=== PATIENT | male | born 1935 | race Caucasian/White ===

== ENCOUNTER 2018-09-08 11:14 | Inpatient (IN) | payer OTHER ==
[~2018-09-08] VITALS: Ht 177.8 cm; Wt 81.6 kg
[~2018-09-08 11:14] MED LIST: ACETAMINOPHEN325 M1 PO; ALEVE220 M1 PO; ASPIRIN325 PO; CALCIUM 600 +1 EA11 PO; COUMADIN 2 MG TA2 M1; COUMADIN 5 MG TA5 M1; FERREX 150150 MG PO; HYDROCODON-ACE1 EAC5; LIPITOR80 MG PO; LOPID600 MG PO; METOPROLOL SUCC25 M1 PO; MULTIVITAMINS PO; NORVASC10 MG PO
[2018-09-08 11:19] VITALS: BP 117/63
[2018-09-08] MEDS ORDERED: FISH OIL 1,001000 M2 PO (11:25)
[2018-09-08 11:51] LABS: URINE BILIRUBIN NEGATIVE (Negative); URINE BLOOD NEGATIVE (Negative); URINE CLARITY CLEAR; URINE COLOR YELLOW; URINE GLUCOSE-RANDOM* NEGATIVE (Negative); URINE KETONES NEGATIVE (Negative); URINE LEUKOCYTES-REFLEX NEGATIVE (Negative); URINE NITRITE-REFLEX NEGATIVE (Negative); URINE PROTEIN (DIPSTICK) NEGATIVE (Negative); URINE SPECIFIC GRAVITY <= 1.005 (1.005-1.035); URINE UROBILINOGEN 0.2 E.U./dl (0.2-1.0)
[2018-09-08 13:10] LABS: HEMATOCRIT 34.2 % (42.0-52.0); HEMOGLOBIN 11.3 gm/dL (14.0-18.0); MCH 30.5 pg (26.0-34.0); MCV 92.3 fL (80.0-100.0); PLATELET COUNT 293 thou/uL (150-400); RDW 13.7 % (10.5-14.5); WBC 6.8 thou/uL (4.0-11.0)
[2018-09-08 13:17] LABS: CALCIUM 9.3 mg/dL (8.5-10.1); CREATININE 1.5 mg/dL (0.7-1.3); POTASSIUM 4.7 mmol/L (3.5-5.1)
[2018-09-08 13:23] LABS: ALBUMIN 2.6 g/dL (3.4-5.0); TOTAL BILIRUBIN 0.3 mg/dL (<0.1-1.0)
[2018-09-08 14:19] LABS: ABSOLUTE NEUTROPHILS 4.4 thou/uL (1.4-8.2); ATYPICAL LYMPHS 2 %; METAMYELOCYTES 1 %
[2018-09-08 14:21] LABS: ANISOCYTOSIS SLIGHT
[2018-09-08] MEDS ORDERED: ALEVE220 MG PO (16:03)
[2018-09-08 17:32] VITALS: BP 117/63
[2018-09-08 17:55] LABS: PHOSPHORUS 3.9 mg/dL (2.5-4.9)
[2018-09-08 19:07] VITALS: BP 158/89
[2018-09-08 19:20] VITALS: BP 158/89
[2018-09-09 03:33] VITALS: BP 119/72
--- NOTE | 2018-09-09 03:47 | NUR ---
new admit at around 1915. patient admitted for tremors. skin warm and intact and appropriate to race. no bruises or cuts noted this shift. neurology called for cousult no new orders. patient denied pain or discomfort. patient uses urinal. patient denied tremors this shift. patient calm and cooperative with meds and care. patient in bed asleep at this time breathing regular and unlaboured.
[2018-09-09 05:24] LABS: HEMATOCRIT 34.4 % (42.0-52.0); HEMOGLOBIN 11.5 gm/dL (14.0-18.0); MCHC 33.5 g/dL (28.0-37.0); MCV 92.5 fL (80.0-100.0); RBC 3.71 mil/uL (4.50-6.00); RDW 13.6 % (10.5-14.5); WBC 5.8 thou/uL (4.0-11.0)
[2018-09-09 05:28] LABS: CALCIUM 9.1 mg/dL (8.5-10.1); CREATININE 1.4 mg/dL (0.7-1.3); POTASSIUM 4.3 mmol/L (3.5-5.1)
[2018-09-09 07:32] VITALS: BP 138/68
--- NOTE | 2018-09-09 13:15 | NUR ---
PT ADMITTED RELATED TO TREMORS. CM REVIEWED CHART AND SPOKE WITH CARE TEAM. CM MET WITH PT AT BEDSIDE THIS DAY. PT IS A&O X4. CM ROLE INTRODUCED. PT INDICATED HE HAD BEEN LIVING IN A HOUSE WITH HIS HOUSE WITH WITH 2 STEPS TO ENTER AND NO STEPS INSIDE. 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 PT INDICATED NO DME HX. PT INDICATED HE HAD HH WHEN HE HAD HIS KNEE REPLACEMENT. PT INDICATED HE PLANS TO RETURN HOME ONCE MEDICALLY STABLE. CM TO FOLLOW INDICATED WITH DC PLANNING.
--- NOTE | 2018-09-09 13:49 | NUR ---
TOWARDS POC PT A/O X4, VSS, AFEBRILE. DENIES PAIN. TREMORS HAS BEEN IMPROVED PER PT. FALL RISK IN PLACE. WILL CONTINUE TO MONITOR.
[2018-09-09 15:19] VITALS: BP 142/54
[2018-09-09 19:15] VITALS: BP 125/60
--- NOTE | 2018-09-10 01:32 | NUR ---
PROGRESS PT HERE FOR NEW ONSET OF TREMORS, MRI AND CT OF HEAD WERE NEGATIVE FOR ANY ACUTE PROCESSES. EVALUATED BY WHO MAY START A GABAPENTIN TRIAL TO DECREASE TREMORS. TREMORS RETURNED THIS EVENING PER PATIENT SLIGHT TREMORING NOTED TO BOTH HANDS. VSS, TELE INTACT READING SR WITH A RATE OF 72. VOIDING LARGE AMOUNTS OF LIGHT CLEAR YELLOW URINE. IV TO RW INFUSING NS@75CC/HR WITHOUT DIFFICULTY. PT DENIES PAIN. ON ROOM AIR SKIN C/D/I WITH NO AREAS OF BREAKDOWN NOTED. CONTINUE TO MONITOR
[2018-09-10 03:55] VITALS: BP 136/68
[2018-09-10 08:16] VITALS: BP 130/78
[2018-09-10 12:15] VITALS: BP 130/78
--- NOTE | 2018-09-10 12:16 | NUR ---
CARE TEAM INDICATED THAT PT WILL LIKELY BE MEDICALLY STABLE TO DISHCARGE HOME THIS AFTERNOON. CARE TEAM RECOMMENDED HOME HEALTH. CM NOTIFIED [facility] OF REFERRAL HE HAD BEEN ON SERVICE WITH THEM IN THE PAST. AWAITING RESPONSE. CM PROVIDED PT WITH INFO ON PCPS HERE AT [facility]. NO OTHER CM INTERVENTION INDICATED AT THIS TIME. CASE CLOSED.
[2018-09-10] MEDS ORDERED: NEURONTIN 300300 M1 PO (13:39)
[2018-09-10] MEDS ORDERED: ATIVAN1 MG PO (13:39)
[2018-09-10] MEDS ORDERED: ACETAMINOPHEN325 M1 PO (13:39)
[2018-09-10] MEDS ORDERED: MUCINEX DM ER1 EAC1 PO (13:39)
[2018-09-10 15:00] VITALS: BP 132/63
[2018-09-10 15:08] VITALS: BP 130/78
--- NOTE | 2018-09-10 15:50 | NUR ---
Pt stable through out the shift, is able to ambulate with no issues. Able to use the urinal. No tremors noted during this shift. Seen by Dr. Quigley, medications given. DC orders and instructions given to the pt. Awaiting for to pick him up.
--- NOTE | 2018-09-13 09:54 | HC ---
[facility] [address] [place] [address] CONSULTATION Name: JOHANN WEBB ORION Room #: 461-P [facility] M.R.#: [id number] Admission: 09/08/18 Attend Phys: Jaun Jacques MD Discharge: 09/10/18 Date of : 35 Report #: [id number] THIS REPORT FOR: //name// CC: ABILIO physician/PCP Jaun Jacques DATE OF SERVICE: 09/08/2018 HISTORY OF PRESENT ILLNESS: This is an 82-year-old male patient who was seen by me in the Emergency Room yesterday at the request of Emergency Room physician. The dictation is done today because of the time constraints. The patient had presented with somewhat of an unusual history. He indicated that he started having tremor of both sides on [place]. One of his son-in-law is in medical profession and he recommended that he drinks a lot of water. He did that and his tremor resolved. He did not do anything about it. In fact, he does not have any family doctor at the moment. His primary care retired and he has not had an opportunity to get a new primary care. Yesterday, he started having similar shakiness. He tried the same thing and drank a lot of water. That did not help and he came to Emergency Room. In the Emergency Room, he was given small dose of Ativan. That did help him some, but he still continued to have what looks like a flapping tremor. REVIEW OF SYSTEMS: Indicate that this patient is relatively healthy. He does not have a family practice anymore. He is looking for one. He had some sort of pain in the ear in the past. Otherwise, he is healthy. His 14-point review of system was carried out and he does have some history of hypertension. He had cardiac in the past. He had inguinal hernia in the past. He had a heart stent put in. He had a colonoscopy. He had some prostate problem and bilateral cataracts. He does have a history of hypercholesterolemia. Associated with the present symptomatology, he was not complaining of any new eye, cardiac, respiratory, GI, , musculoskeletal, constitutional, dermatological, hematological, psychiatric, throat, allergic symptoms associated with present symptomatology. FAMILY HISTORY: Negative for early age stroke. SOCIAL HISTORY: He does not drink alcohol. PHYSICAL EXAMINATION: Indicate he is alert, responsive, oriented, able to follow simple and complex command. His speech, concentration, fund of knowledge and memory is at his baseline. His cranial nerve examination does not show any abnormality. He has a good strength, sensation, reflexes and tone in all 4 extremities. There is no papilledema. There is no meningeal sign. He does have what looks like a flapping tremor. He is a reasonably well-developed individual who does not have any dysmorphic features of eyes, ears and face. His vision and hearing looks adequate. Cardiac examination is unremarkable. No [facility] [address] [place] [address] CONSULTATION Name: JOHANN WEBB ORION Room #: 461-P DIS IN M.R.#: [id number] Admission: 09/08/18 Attend Phys: Jaun Jacques MD Discharge: 09/10/18 Date of : 35 Report #: [id number] respiratory difficulty or rhonchi was noticed. Pulses are somewhat difficult to feel, but no edema, cyanosis or jaundice. His blood pressure is 138/68. His respiration is 16, pulse is 77, temperature is 98.4. LABORATORY DATA: His white count is 5.8. His GFR is 49. His CT scan of the head was done and that appear unremarkable. The labs does indicate that his calcium was normal at 9.1, but his albumin was low, so I have recommended an ionized calcium in this patient to the Emergency Room physician. IMPRESSION: Very unusual history this patient has. If his ionized calcium is also high, he may need some workup in that regard. But his lab abnormality is not bad enough to explain all the symptoms on him, which is pretty unusual. I had recommended EEG as the first workup to look for any epileptiform activity, which can explain the patient's symptoms. We will look at the EEG and decide about the further management. In the meantime, he was going to receive some oral Ativan and see if that helps. Thank you very much for this referral and if you have any question, please feel free to contact me. <ELECTRONICALLY SIGNED> By: Rolf Quigley MD 09/13/18 0954 [id number] Rolf Quigley MD /nt
--- NOTE | 2018-09-13 09:55 | EEG ---
[facility] [address] [place] [address] ELECTROENCEPHALOGRAM Name: JOHANN WEBB Room #: 461-P DIS IN M.R.#: [id number] Admission: 09/08/18 Attend Phys: Jaun Jacques MD Discharge: 09/10/18 Date of : 35 Report #: [id number] THIS REPORT FOR: //name// CC: ABILIO physician/PCP Jaun Jacques DATE OF SERVICE: 09/09/2018 This patient is being evaluated for tremors. EEG was done by placing the electrode by standard 10-20 system of electrode placement. Both referential and sequential montages were used for recording. Background activity in this patient's EEG is about 9-10 Hz and 30 microvolt. This is a symmetrical activity. The patient keeps going to sleep that is associated with bilateral slowing. Some sharper activity appeared to be present on both sides. That appeared to be because of drowsiness, but it is difficult to tell. Photic stimulation is unremarkable. IMPRESSION: This patient's EEG demonstrates some paroxysmal slowing, which is probably because of drowsiness, but it is difficult to be certain. Thank you very much for this referral. <ELECTRONICALLY SIGNED> By: Rolf Quigley MD 09/13/18 0955 [id number] Rolf Quigley MD /nt
== END 2018-09-10 18:43 | disposition home health service (06) | DRG 91 ==
LOC: ER 11:14 → EROBS 16:56 → 4W 16:56 → ENTRNSPT 09-10 16:15 → 4W 09-10 18:43
PROVIDERS: Nurse Practitioner; ADMIT Internal Medicine
DX: R25.1 Tremor, unspecified (principal); E43 Unspecified severe protein-calorie malnutrition; E46 Unspecified protein-calorie malnutrition; E78.00 Pure hypercholesterolemia, unspecified; G31.9 Degenerative disease of nervous system, unspecified; I25.10 Atherosclerotic heart disease of native coronary artery without angina pectoris; I12.9 Hypertensive chronic kidney disease with stage 1 through stage 4 chronic kidney disease, or unspecified chronic kidney disease; N18.9 Chronic kidney disease, unspecified; E78.5 Hyperlipidemia, unspecified; Z68.25 Body mass index [BMI] 25.0-25.9, adult; Z95.5 Presence of coronary angioplasty implant and graft; Z98.42 Cataract extraction status, left eye; Z98.41 Cataract extraction status, right eye; Z88.6 Allergy status to analgesic agent; Z91.02 Food additives allergy status
CPT/HCPCS: 10045

== ENCOUNTER → 2018-09-20 | Outpatient (CLI) | payer OTHER ==
[~2018-09-20] MED LIST changes: +ALEVE220 MG PO; +ATIVAN1 MG PO; +FISH OIL 1,001000 M2 PO; +MAGOX 400400 MG PO; +MIRALAX17 GM PO; +MUCINEX DM ER1 EAC1 PO; +NEURONTIN 300300 M1 PO
[2018-09-20 09:40] LABS: ABSOLUTE NEUTROPHILS 6.6 thou/uL (1.4-8.2); BASOPHILS 0.8 % (0.0-2.0); EOSINOPHILS 2.4 % (0.0-3.0); HEMATOCRIT 35.4 % (42.0-52.0); HEMOGLOBIN 11.9 gm/dL (14.0-18.0); LYMPHOCYTES 18.1 % (24.0-44.0); MCH 31.5 pg (26.0-34.0); MCHC 33.7 g/dL (28.0-37.0); MCV 93.5 fL (80.0-100.0); MONOCYTES 11.4 % (1.0-8.0); PLATELET COUNT 430 thou/uL (150-400); POLYS 67.3 % (36.0-66.0); RBC 3.79 mil/uL (4.50-6.00); RDW 13.9 % (10.5-14.5); WBC 9.8 thou/uL (4.0-11.0)
[2018-09-20 09:56] LABS: ALBUMIN 3.1 g/dL (3.4-5.0); ANION GAP 7 mmol/L (7-16); BUN 24 mg/dL (7-18); CALCIUM 9.5 mg/dL (8.5-10.1); CHLORIDE 105 mmol/L (98-107); CHOLESTEROL 117 mg/dL (<200); CO2 29 mmol/L (21-32); CREATININE 1.5 mg/dL (0.7-1.3); GLUCOSE 156 mg/dL (74-106); HDL CHOLESTEROL 27 mg/dL (>40); LDL CHOLESTEROL 59 mg/dL (<100); POTASSIUM 4.5 mmol/L (3.5-5.1); SGOT 6 U/L (15-37); SGPT 26 U/L (30-65); SODIUM 141 mmol/L (136-145); TC:HDL 4.3 Ratio (Not establshd); TOTAL BILIRUBIN 0.4 mg/dL (<0.1-1.0); TOTAL PROTEIN 7.9 g/dL (6.4-8.2); TRIGLYCERIDE 157 mg/dL (<150); VLDL 31 mg/dL (<40)
[2018-09-20 10:22] LABS: TSH 3.188 uIU/mL (0.358-3.740)
== END ==
LOC: SEN 08:14
PROVIDERS: Nurse Practitioner Family
DX: R10.9 Unspecified abdominal pain (principal); R25.1 Tremor, unspecified; Z79.899 Other long term (current) drug therapy

== ENCOUNTER 2018-10-05 11:41 | Inpatient (IN) | payer OTHER ==
[~2018-10-05] VITALS: Ht 177.8 cm; Wt 83.9 kg
[~2018-10-05 11:41] MED LIST changes: -MAGOX 400400 MG PO; -MIRALAX17 GM PO
[2018-10-05 11:49] VITALS: BP 123/77
[2018-10-05 12:25] LABS: ABSOLUTE NEUTROPHILS 7.1 thou/uL (1.4-8.2); BASOPHILS 0.3 % (0.0-2.0); EOSINOPHILS 0.8 % (0.0-3.0); HEMATOCRIT 38.1 % (42.0-52.0); HEMOGLOBIN 12.8 gm/dL (14.0-18.0); LYMPHOCYTES 17.2 % (24.0-44.0); MCH 31.5 pg (26.0-34.0); MCHC 33.7 g/dL (28.0-37.0); MCV 93.3 fL (80.0-100.0); MONOCYTES 10.9 % (1.0-8.0); PLATELET COUNT 327 thou/uL (150-400); POLYS 70.8 % (36.0-66.0); RBC 4.08 mil/uL (4.50-6.00); RDW 14.5 % (10.5-14.5); WBC 10.1 thou/uL (4.0-11.0)
[2018-10-05 12:32] LABS: ANION GAP 11 mmol/L (7-16); BUN 21 mg/dL (7-18); CALCIUM 9.6 mg/dL (8.5-10.1); CHLORIDE 104 mmol/L (98-107); CO2 25 mmol/L (21-32); CREATININE 1.5 mg/dL (0.7-1.3); GLUCOSE 118 mg/dL (74-106); POTASSIUM 4.9 mmol/L (3.5-5.1); SODIUM 140 mmol/L (136-145)
[2018-10-05 12:42] LABS: LIPASE 101 U/L (73-393); SGOT 9 U/L (15-37); SGPT 23 U/L (30-65); TOTAL BILIRUBIN 0.5 mg/dL (<0.1-1.0); TOTAL PROTEIN 7.8 g/dL (6.4-8.2); TROPONIN-I <0.06 ng/mL (<0.06)
[2018-10-05 14:28] VITALS: BP 126/70
[2018-10-05 15:04] VITALS: BP 132/74
[2018-10-05 15:37] VITALS: BP 137/82
[2018-10-05] MEDS ORDERED: MAGOX 400400 MG PO (15:40)
--- NOTE | 2018-10-05 17:02 | NUR ---
[age] YEAR MALE ADMITTED TO WEST ROOM 458 UNDER THE CARE OF . PT WAS BROUGHT IN THE ER PER FAMILY. PT C/O HAVING ABDOMINAL PAIN FOR THE PAST WEEK THAT GOT WORSE LAST NIGHT. PT IS ALERT AND ORIENTED TIMES FOUR. VSS, 98%RA. IVF INFUSING PER ORDER. PT UP TO RESTROOM WITH STANDBY ASSIST. AT BEDSIDE DURING ADMISSION. WILL CONTINUE TO MONITOR.
--- NOTE | 2018-10-05 17:32 | EKG ---
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 : 1935 Requested By: Emerson Knight Order Number: [id number] MD: Qamar Galan Measurements Intervals [place] Rate: 84 P: 9 SD: 183 QRS: -17 QRSD: 80 T: 28 QT: 365 QTc: 432 Interpretive Statements Sinus rhythm Inferior infarct, old Compared to ECG 09/05/2005 08:50:59 No significant change was found Electronically Signed On 10-05-2018 17:32:26 WINDOW TREATMENT INSTALLER by Qamar Galan [email or web address] ��������������������������������������������� <ELECTRONICALLY SIGNED> ���������������������������������������� By: Qamar Galan MD, [facility] ��������������������������������������������� 10/05/18 1732 1228 27 Qamar Galan MD, FACC /EPI
[2018-10-05 20:01] VITALS: BP 142/71; BP 1452/71
[2018-10-06 05:38] LABS: ALBUMIN 2.5 g/dL (3.4-5.0); CALCIUM 8.4 mg/dL (8.5-10.1); CREATININE 1.3 mg/dL (0.7-1.3); POTASSIUM 4.2 mmol/L (3.5-5.1)
[2018-10-06 05:42] VITALS: BP 124/67
[2018-10-06 07:29] VITALS: BP 146/83
--- NOTE | 2018-10-06 08:59 | NUR ---
PROGRESS PT A/O X4 CALM AND PLEASANT DENIES PAIN BS POSITIVE AND PT REPORTS FLATUS, ABDOMEN SOFT AND NON TENDER, IVF'S ORDERED, REPOSITIONS SELF. SLEEP THROUGHOUT NOC./ CONTINUE POC.
[2018-10-06 15:11] VITALS: BP 144/80
--- NOTE | 2018-10-06 16:28 | NUR ---
PT ADMITTED RELATED TO SBO. CM REVIEWED CHART AND SPOKE WITH CARE TEAM. CM MET WITH PT AT BEDSIDE THIS DAY. PT IS A&O X4. CM RECALLS PT FROM PREVIOUS HOSPITAL STAY. PT INDICATED HE HAD BEEN LIVING IN A HOUSE WITH HIS HOUSE WITH WITH 2 STEPS TO ENTER AND NO STEPS INSIDE. 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 PT INDICATED NO DME HX. PT INDICATED HE HAD HH WHEN HE HAD HIS KNEE REPLACEMENT. PT INDICATED HE PLANS TO RETURN HOME ONCE MEDICALLY STABLE. CM TO FOLLOW INDICATED WITH DC PLANNING.
--- NOTE | 2018-10-06 19:20 | NUR ---
PT ALERT AND ORIENTED TIMES FOUR. VSS, 98%RA. PT UP WALKING AROUND THE UNIT WITH STANDBY ASSIST. PT TOLERATES ICE CHIPS. FAMILY AT BEDSIDE THIS SHIFT. WILL CONTINUE TO MONITOR.
[2018-10-06 21:43] VITALS: BP 149/86
--- NOTE | 2018-10-06 21:52 | NUR ---
Lisha Pt. care at 2004. Patient transported from [facility]w, room 458 to [facility] room 224. Transported in a w/c w/ asst of unit secrectary. Ambulated from w/c to bed, independently w/ steady gait. Appears alert/oriented; able to make needs known. Patient remains NPO; Ice chips only. Patient oriented to room 224/[facility]. Patient's vitals WNL. Blood sugar obtained and reading 105. Patient has no c/o pain or discomfort. No s/s of acute distress noted. Patient in room w/ call light/desired belongings within reach. Will continue to monitor.
--- NOTE | 2018-10-07 06:45 | NUR ---
Patient remains A&Ox4; Swallows meds whole w/o difficulty. Remains cont. B&B; Needs asst x 1 for transfers. Blood sugars WNL. Reamins on Lovenox therapy; no s/s of bleeding noted. Glasses intact to face. Abd firm/non- tender; BS+x4. SL noted to RAC; infusing D5NS @ 125ml/hr w/o difficulty. Patient has no c/o pain or discomfort. No s/s of acute distress noted. Patient in bed asleep w/ call light/desired belongings within reach. Po fluids encouraged. Will continue to monitor.
[2018-10-07 07:10] LABS: ALBUMIN 2.5 g/dL (3.4-5.0); CALCIUM 8.4 mg/dL (8.5-10.1); CREATININE 1.3 mg/dL (0.7-1.3); PHOSPHORUS 2.7 mg/dL (2.5-4.9); POTASSIUM 3.8 mmol/L (3.5-5.1)
[2018-10-07 07:18] LABS: MAGNESIUM 1.9 mg/dL (1.8-2.4)
[2018-10-07 07:51] VITALS: BP 137/69
--- NOTE | 2018-10-07 12:37 | NUR ---
SW reviewed chart and spoke with nursing and attending physician. Pt was transferred to [facility] from and is progressing towards goals for discharge. Recommendation made for pt to have HH services. Pt remains NPO. Hopefully will advance diet later today. Discharge is anticipated in 1-2 days. SW met with pt at bedside to discuss discharge plan. Pt is agreeable with HH services. Pt has used [facility] in the past and is agreeable with using them again. [facility] P[facility]. SW notified intake at [facility] of new referral and anticipated discharge timeframe. SW is following to assist as needed with discharge planning.
--- NOTE | 2018-10-07 14:44 | NUR ---
ASSUMED CARE OF PATIENT THIS MORNING. PATIENT IS A&OX4. HE IS UP W/SBA. PATIENT GETS BLOOD SUGAR CHECKED AC/HS. HE DID NOT RECEIVE ANY INSULIN THIS MORNING, NOT INDICATED. PATIENT HAD A KUB XRAY THIS MORNING, WHICH SHOWS SUPINE ABDOMEN DEMONSTRATES IMPROVEMEMT IN THE ABDOMINAL BOWEL GAS. OBSTRUCTION IS RESOLVING. HE RECEIVED A SUPPOSITORY THIS MORNING AND HAS NOT HAD ANY RESULTS FROM IT YET. HE VOIDS PER URINAL. NO ABNORMAL ASSESSMENT FINDINGS. HE HAS NOT COMPLAINED OF ANY PAIN. PATIENT IS CURRENTLY LYING IN BED WITH CALL LIGHT WITHIN REACH AND CALLS OUT APPROPRIATELY FOR ASSISTANCE.
[2018-10-07 18:54] VITALS: BP 167/89
--- NOTE | 2018-10-08 05:14 | NUR ---
ASSUMED CARE OF PATIENT AT 1899. VSS. ASSESSMENT COMPLETED AT 2124 AND IS DOCUMENTED. ABD CONTINUES TO BE DISTENDED, BUT PATIENT STATES THAT "IT ISN'T FIRM IT WAS A COUPLE DAYS AGO". PT CONFIRMED THAT HE HAS BEEN PASSING GAS. HS FINGERSTICK BLOOD SUGAR: 118. NO SS INSULIN COVERAGE NEEDED. RIGHT AC IV PATENT WITH D5W 0.9%NS RUNNING @ 125 ML/HR WITHOUT COMPLICATION. PT INDEPENDENTLY URINATED IN THE URINAL SEVERAL TIMES THROUGHOUT THE NIGHT. PT DENIES PAIN/N/V THIS SHIFT. PT CURRENTLY SLEEPING SOUNDLY IN BED IN NO ACUTE DISTRESS. CALL LIGHT WITHIN REACH. BED LOCKED AND IN LOWEST POSITION. WCTM.
[2018-10-08 07:55] VITALS: BP 152/87
--- NOTE | 2018-10-08 07:55 | NUR ---
PATIENT AWAKE THIS AM. DENIES ANY PAIN TO ABD. PATIENT STATED HE HAS NOT ATE IN 6 DAYS. TOLERATING ICE CHIPS WITHOUT N/V. LUNGS CLEAR. HYPERACTIVE BS. UP WITH STAND-BY ASSIST. USES SHOES FOR MORE SUPPORT, COMPLAINS OF AN AREA TO RT BALL OF FOOT THAT IS HARD TO WALK ON WITHOUT SHOES.
--- NOTE | 2018-10-08 08:30 | NUR ---
PATIENT WALKING WITH VIA WALKER. TOLERATING ACTIVITY WELL.
--- NOTE | 2018-10-08 09:15 | NUR ---
ADM MIRALAX 17GM PO FOR CONSTIPATION. ADM IN APPLE JUICE.
--- NOTE | 2018-10-08 09:30 | NUR ---
PATIENT ABLE TO HAVE CLEAR LIQUIDS. GAVE PATIENT JELLO, CLEAR POP, AND APPLE JUICE. TOLERATED WELL.
--- NOTE | 2018-10-08 10:30 | NUR ---
STARTED 24 HOUR URINE AT THIS TIME. PATIENT EDUCATED ON URINE COLLECTION, LET NURSE KNOW WHEN NEEDED TO PUT INTO CONTAINER.
[2018-10-08 12:05] VITALS: BP 152/87
--- NOTE | 2018-10-08 12:08 | NUR ---
SW reviewed chart and spoke with nursing and attending physician. Pt is progressing towards goals for discharge. Pt started on clear liquids today. Discharge home is anticipated in 1-2 days. SW discussed HH services with pt's , who is agreeable with having HH at time of discharge. [facility] will be able to provide HH to pt. SW updated intake at [facility] of weekend discharge. Contact info for [facility] placed in pt's discharge summary. Pt's family will provide transportation home. No additional SW needs identified at this time, but is available to assist should needs arise.
--- NOTE | 2018-10-08 13:52 | NUR ---
PATIENT RESTING WITH EYES CLOSED.
--- NOTE | 2018-10-08 15:44 | NUR ---
GAVE PATIENT JELLO, CLEAR POP, AND BEEF BROTH. NO COMPLAINTS OF NAUSEA, STILL HAS IV FLUIDS RUNNING D5 NS AT 125ML/HR.
[2018-10-08 18:49] VITALS: BP 137/86
--- NOTE | 2018-10-09 04:09 | NUR ---
ASSUMED CARE OF PATIENT AT 1899. VSS. ASSESSMENT COMPLETED AT 2044 AND IS DOCUMENTED. PT CONTINUES TO PASS FLATULENCE, BUT NO BM THIS SHIFT. ABD DISTENDED BUT SOFT WITH HYPOACTIVE BS. RIGHT AC IV PATENT WITH D4W NS RUNNING AT 125 ML/HR. URINE CURRENTLY BEING COLLECTED FOR 24 HR URINE TEST. COLLECTION BEGAN AT 1030 ON 10/08 AND WILL END AT 1030 ON 10/09. PT'S DIET ADVANCED ON DAY SHIFT (10/08) TO CLEAR LIQUIDS. PT TOLERATING WELL. PT CURRENTLY SLEEPING SOUNDLY IN BED IN NO ACUTE DISTRESS. CALL LIGHT WITHIN REACH. BED LOCKED AND IN LOWEST POSITION. WCTM.
--- NOTE | 2018-10-09 04:21 | NUR ---
THIS NURSE AGREES WITH ASSESSMENT AND NOTES ON THIS PATIENT FROM MRI TECHNOLOGIST.
[2018-10-09 08:15] VITALS: BP 152/83
--- NOTE | 2018-10-09 08:38 | NUR ---
PT IS A&OX4, ANXIOUS TO RETURN HOME, CALLS W/URINE FOR 24H URINE COLLECTION TO END AT 1030AM TODAY. AMB W/SBA SLOWLY AND STEADILY. NO C/O PAIN AT THIS TIME, NOR NAUSEA, ENCOURAGED HIM TO USE CALL LIGHT FOR ANY NEEDS
--- NOTE | 2018-10-09 14:59 | NUR ---
WHEN WALKING W/PT HE MENTIONS RLE HAVING PAIN ON BALL OF FOOT, CHRONIC - YEARS. COMM W/PHYSICIAN TO SEE IF WE CAN ORDER SOMETHING MILD FOR PAIN, SPOUSE AT BEDSIDE AT THIS TIME
[2018-10-09 19:30] VITALS: BP 127/64
[2018-10-09 20:05] LABS: URINE CREATININE 34.9 mg/dL (Not Estab.)
--- NOTE | 2018-10-10 04:41 | NUR ---
ASSUMED CARE OF PATIENT AT 1900. VSS. ASSESSMENT COMPLETED AT 2142 AND IS DOCUMENTED. PRUNE JUICE GIVEN AT BEDTIME WITH NO BM YET. HS ACCUCHECK: 114, NO COVERAGE INSULIN NEEDED OR GIVEN. RIGHT AC IV PATENT WITH D5W NS RUNNING AT 125 ML/HR. PT CONTINUES TO URINATE IN URINAL WITHOUT COMPLICATION. PT STATES HE IS PASSING GAS. PATIENT CURRENTLY SLEEPING SOUNDLY IN BED IN NO ACUTE DISTRESS. CALL LIGHT WITHIN REACH. BED LOCKED AND IN LOWEST POSITION. WCTM.
--- NOTE | 2018-10-10 05:21 | NUR ---
THIS NURSE AGREES WITH THE ASSESSMENT AND NOTES BY BARBER ON THIS PATIENT.
[2018-10-10 06:37] LABS: ALBUMIN 2.3 g/dL (3.4-5.0); CREATININE 1.1 mg/dL (0.7-1.3); PHOSPHORUS 2.4 mg/dL (2.5-4.9); POTASSIUM 3.7 mmol/L (3.5-5.1)
[2018-10-10 08:00] VITALS: BP 129/61
--- NOTE | 2018-10-10 13:32 | NUR ---
AAOX4. TOLERATING FULL LIQUIDS. ASSISTED TO BR FOR BM; DIET ADVANCED TO HEART HEALTHY FIBER RESTRICTED ORDERED. IF HE TOLERATES SOLID FOOD DISCHARGE MAY FOLLOW. FREQUENT CHECKS; WILL CONTINUE TO MONITOR.
[2018-10-10 19:54] VITALS: BP 165/86
--- NOTE | 2018-10-11 06:24 | NUR ---
PATIENTS CARES WERE ASSUMED AT SHIFT CHANGE. PATIENT WAS ASSESSED AND MEDS WERE PASSED. HOURLY ROUNDING WAS DONE. PATIENT DID APPER TO HAVE BEEN SLEEPING MOST OF THIS SHIFT. THE BED IS IN A LOW AND LOCKED POSITION. PATIENT DID AWAKE AT APPROX 0530 HIS IV WAS OUT. STOPED FLUID. FRESH LINEN WAS PUT ON THE PATIENT AND THE BED. IV WAS NOT RESTARTED DUE TO PATIENT BELIEVES HE IS GOING HOME TODAY.
[2018-10-11 08:10] VITALS: BP 143/85
[2018-10-11 09:00] VITALS: BP 148/85
[2018-10-11] MEDS ORDERED: MIRALAX17 GM PO (09:16)
--- NOTE | 2018-10-11 10:07 | NUR ---
DISCHARGE NOTE: SW reviewed chart and spoke with nursing and attending physician. Pt is medically stable for discharge home today with services. SW met with pt and at bedside to discuss discharge plan. Both are aware and in agreement with discharge plan. Pt's will provide transportation home. Contact info for [facility] placed in pt's discharge summary. SW notified intake at [facility] of discharge orders. No additional SW needs identified at this time, but is available to assist should needs arise.
--- NOTE | 2018-10-11 10:59 | NUR ---
ASSUMED PATIENT AND CARES AT 0715, PATIENT A&OX4 AND DENIES PAIN OR DISCOMFORT, PATIENT LAYING IN BED WITH COVERS PULLED OVER HEAD, NO IV ACCESS AT THIS TIME, IV REMOVED PRIOR TO CHANGE OF SHIFT, PATIENT STATES HE DOES NOT WANT HIS ACCUCHECK DUE TO NOT BEING A DIABETIC AND HE IS GOING HOME, PERSONAL BELONGINGS AND CALL LIGHT IN REACH, WILL CONTINUE TO MONITOR
--- NOTE | 2018-10-11 11:24 | NUR ---
PATIENT DICHARGED HOME WITH HOME HEALTH, PACKED ALL BELONGIGNS, NURSE DISCUSSED DISCHARGE INSTRUCTIONS AND MEDICATIONS WITH PATIENT AND , VERBALIZED UNDERSTANDING, NO IV ACCESS AT THIS TIME, TRANSPORT TOOK PATIENT TO MEDICAL MALL ENTRANCE TO PERSONAL CAR
--- NOTE | 2018-10-11 13:20 | NUR ---
I AGREE WITH NURSING ASSESSMENT DONE BY SHWETA/MAGI.
== END 2018-10-11 13:22 | disposition home health service (06) | DRG 388 ==
LOC: ER 11:41 → EROBS 13:55 → SICU 13:55 → 4W 13:55 → ENTRNSPT 10-06 19:50 → SICU 10-06 20:53 → ENTRNSPT 10-11 11:06 → EDTRNSPTSTS 10-11 11:11 → SICU 10-11 13:22
PROVIDERS: Emergency Medicine; ADMIT Hospitalist
DX: K56.600 Partial intestinal obstruction, unspecified as to cause (principal); E43 Unspecified severe protein-calorie malnutrition; E46 Unspecified protein-calorie malnutrition; K52.9 Noninfective gastroenteritis and colitis, unspecified; K56.7 Ileus, unspecified; I10 Essential (primary) hypertension; E78.00 Pure hypercholesterolemia, unspecified; E78.5 Hyperlipidemia, unspecified; E83.42 Hypomagnesemia; M19.90 Unspecified osteoarthritis, unspecified site; Z95.5 Presence of coronary angioplasty implant and graft; Z90.79 Acquired absence of other genital organ(s); Z98.42 Cataract extraction status, left eye; Z98.41 Cataract extraction status, right eye; Z68.26 Body mass index [BMI] 26.0-26.9, adult; Z79.899 Other long term (current) drug therapy; Z88.5 Allergy status to narcotic agent; Z88.8 Allergy status to other drugs, medicaments and biological substances; Z91.018 Allergy to other foods
CPT/HCPCS: 10040; 15002

== ENCOUNTER → 2018-10-05 | Outpatient (CLI) | payer OTHER ==
[2018-10-05 10:56] LABS: ABSOLUTE NEUTROPHILS 8.4 thou/uL (1.4-8.2); BASOPHILS 0.4 % (0.0-2.0); EOSINOPHILS 0.7 % (0.0-3.0); HEMOGLOBIN 12.9 gm/dL (14.0-18.0); LYMPHOCYTES 10.9 % (24.0-44.0); MCH 31.5 pg (26.0-34.0); MCHC 33.8 g/dL (28.0-37.0); MCV 92.9 fL (80.0-100.0); MONOCYTES 11.3 % (1.0-8.0); PLATELET COUNT 334 thou/uL (150-400); POLYS 76.7 % (36.0-66.0); RBC 4.09 mil/uL (4.50-6.00); RDW 14.4 % (10.5-14.5); WBC 10.9 thou/uL (4.0-11.0)
[2018-10-05 10:59] LABS: URINE BILIRUBIN NEGATIVE (Negative); URINE BLOOD NEGATIVE (Negative); URINE CLARITY CLEAR; URINE COLOR YELLOW; URINE GLUCOSE-RANDOM* NEGATIVE (Negative); URINE KETONES TRACE (Negative); URINE LEUKOCYTES-REFLEX NEGATIVE (Negative); URINE NITRITE-REFLEX NEGATIVE (Negative); URINE PROTEIN (DIPSTICK) TRACE (Negative); URINE SPECIFIC GRAVITY >= 1.030 (1.005-1.035); URINE UROBILINOGEN 0.2 E.U./dl (0.2-1.0)
[2018-10-05 11:06] LABS: ALBUMIN 3.1 g/dL (3.4-5.0); CALCIUM 9.8 mg/dL (8.5-10.1); CREATININE 1.5 mg/dL (0.7-1.3); POTASSIUM 4.8 mmol/L (3.5-5.1); TOTAL BILIRUBIN 0.5 mg/dL (<0.1-1.0); TOTAL PROTEIN 7.8 g/dL (6.4-8.2)
== END ==
LOC: SEN 09:16 → RAD 09:16
PROVIDERS: Nurse Practitioner Family
DX: R14.0 Abdominal distension (gaseous) (principal); R10.84 Generalized abdominal pain

== ENCOUNTER 2018-12-06 11:49 | Inpatient (IN) | payer OTHER ==
[~2018-12-06] VITALS: Ht 177.8 cm; Wt 82.9 kg
[~2018-12-06 11:49] MED LIST changes: +MAGOX 400400 MG PO; +MIRALAX17 GM PO
[2018-12-06 11:54] VITALS: BP 132/73
[2018-12-06 12:35] LABS: URINE BILIRUBIN NEGATIVE (Negative); URINE BLOOD NEGATIVE (Negative); URINE CLARITY CLEAR; URINE COLOR YELLOW; URINE GLUCOSE-RANDOM* NEGATIVE (Negative); URINE KETONES NEGATIVE (Negative); URINE LEUKOCYTES-REFLEX NEGATIVE (Negative); URINE NITRITE-REFLEX NEGATIVE (Negative); URINE PROTEIN (DIPSTICK) NEGATIVE (Negative); URINE SPECIFIC GRAVITY 1.025 (1.005-1.035); URINE UROBILINOGEN 0.2 E.U./dl (0.2-1.0)
[2018-12-06 12:52] LABS: ABSOLUTE NEUTROPHILS 6.3 thou/uL (1.4-8.2); BASOPHILS 0.4 % (0.0-2.0); HEMOGLOBIN 11.6 gm/dL (14.0-18.0); LYMPHOCYTES 16.5 % (24.0-44.0); MCH 29.8 pg (26.0-34.0); MCV 90.5 fL (80.0-100.0); MONOCYTES 10.8 % (1.0-8.0); PLATELET COUNT 314 thou/uL (150-400); POLYS 71.3 % (36.0-66.0); RBC 3.87 mil/uL (4.50-6.00); RDW 15.3 % (10.5-14.5); WBC 8.8 thou/uL (4.0-11.0)
[2018-12-06 13:01] LABS: CALCIUM 9.7 mg/dL (8.5-10.1); CREATININE 1.7 mg/dL (0.7-1.3); POTASSIUM 4.5 mmol/L (3.5-5.1)
[2018-12-06 13:07] LABS: DIRECT BILIRUBIN 0.1 mg/dL (<0.1-0.3); TOTAL BILIRUBIN 0.5 mg/dL (<0.1-1.0); TOTAL PROTEIN 7.4 g/dL (6.4-8.2)
[2018-12-06 15:01] VITALS: BP 142/75
[2018-12-06 15:44] VITALS: BP 149/81
[2018-12-06 16:17] VITALS: BP 155/72
[2018-12-06 20:21] VITALS: BP 136/69
[2018-12-07 03:50] VITALS: BP 124/61
[2018-12-07 05:16] LABS: HEMATOCRIT 33.1 % (42.0-52.0); HEMOGLOBIN 10.9 gm/dL (14.0-18.0); MCH 29.8 pg (26.0-34.0); MCHC 32.9 g/dL (28.0-37.0); MCV 90.6 fL (80.0-100.0); PLATELET COUNT 295 thou/uL (150-400); RBC 3.66 mil/uL (4.50-6.00); RDW 15.2 % (10.5-14.5); WBC 7.9 thou/uL (4.0-11.0)
[2018-12-07 05:25] LABS: CALCIUM 8.6 mg/dL (8.5-10.1); CREATININE 1.4 mg/dL (0.7-1.3); POTASSIUM 4.5 mmol/L (3.5-5.1)
[2018-12-07 06:23] LABS: ABSOLUTE NEUTROPHILS 4.7 thou/uL (1.4-8.2); PLATELET ESTIMATE NORMAL
[2018-12-07 07:08] VITALS: BP 123/59
[2018-12-07 17:21] VITALS: BP 117/57
[2018-12-07 21:59] VITALS: BP 124/61
[2018-12-08 05:27] VITALS: BP 134/72
[2018-12-08 07:59] VITALS: BP 130/67
--- NOTE | 2018-12-08 15:05 | PATH ---
[facility] [address] [place] [address] PATHOLOGY RPT PROCEDURE Name: PAUL TATE ORION Room #: 423-1 ADM IN M.R.#: [id number] ������������������ Admission: 12/06/18 ������������������ Date of : 35 Discharge: Report #: [id number] Path Case #: [id number] [facility] Accession Number: [id number] . 01 Material submitted: . cecum - BX OF CECAL MASS . 01 Clinical history: . Nausea, vomiting, abdominal pain, diarrhea, abnormal CT scan . 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 - Negative for high grade dysplasia or invasion. . (IUV:mml; 12/08/2018) QLM/12/08/2018 . 02 Comment: The provided history of "cecal mass" is noted. Definitive areas of invasion are not identified, which may be due to sampling. . This case was also co-reviewed by Dr. Emerson Levy, who concurs with the diagnosis. . (IUV:mml; 12/08/2018) . 02 Electronically signed: . Poonam Acosta MD, Pathologist NPI- [id number] . 01 Gross description: . The specimen is received in formalin, labeled "Paul Tate, biopsy of cecal mass", are multiple fragment of holguin soft tissues measuring 0.7 x 0.3 x 0.1 cm in aggregate, entirely submitted in A1. (SWS; 12/07/2018) . . . . . . . . . . . [facility] [address] [place] [address] PATHOLOGY RPT PROCEDURE Name: PAUL TATE ORION Room #: [facility]- ADM IN M.R.#: [id number] ������������������ Admission: 12/06/18 ������������������ Date of : 35 Discharge: Report #: [id number] Path Case #: [id number] SHS/SHS . 02 Pathologist provided ICD-10: D12.0, K63.3 . 02 CPT . 389346 Specimen Comment: A courtesy copy of this report has been sent to Specimen Comment: [phone], , . Specimen Comment: Report sent to ,DR WALTON / DR AHMADI Performed at: [address], [place], [place] [id number] MD Shelton Mccarthy MD Phone: [phone] Performed at: [address] [id number] MD Poonam Acosta MD Phone: [phone]
[2018-12-08 16:43] VITALS: BP 121/58
[2018-12-08 19:43] VITALS: BP 133/64
[2018-12-09 05:03] VITALS: BP 131/71
[2018-12-09 07:50] VITALS: BP 129/70
[2018-12-09 10:21] LABS: CALCIUM 9.2 mg/dL (8.5-10.1); CREATININE 1.6 mg/dL (0.7-1.3); MAGNESIUM 1.9 mg/dL (1.8-2.4)
[2018-12-09 20:32] VITALS: BP 141/60
[2018-12-10 04:26] VITALS: BP 123/66
[2018-12-10 04:46] LABS: HEMATOCRIT 34.4 % (42.0-52.0); HEMOGLOBIN 11.3 gm/dL (14.0-18.0); MCH 29.7 pg (26.0-34.0); MCHC 32.8 g/dL (28.0-37.0); MCV 90.6 fL (80.0-100.0); RBC 3.8 mil/uL (4.50-6.00); RDW 14.7 % (10.5-14.5); WBC 6.8 thou/uL (4.0-11.0)
[2018-12-10 05:00] LABS: CALCIUM 8.6 mg/dL (8.5-10.1); CREATININE 1.3 mg/dL (0.7-1.3)
[2018-12-10 16:38] VITALS: BP 109/62
[2018-12-10 17:19] VITALS: BP 114/58
[2018-12-10 21:05] VITALS: BP 141/65
[2018-12-11 03:40] VITALS: BP 133/66
[2018-12-11 05:17] LABS: HEMOGLOBIN 10.5 gm/dL (14.0-18.0); MCH 29.3 pg (26.0-34.0); MCV 91.7 fL (80.0-100.0); RBC 3.6 mil/uL (4.50-6.00); RDW 14.8 % (10.5-14.5); WBC 17.9 thou/uL (4.0-11.0)
[2018-12-11 05:37] LABS: CALCIUM 7.9 mg/dL (8.5-10.1); CREATININE 1.8 mg/dL (0.7-1.3); POTASSIUM 4.3 mmol/L (3.5-5.1)
[2018-12-11 09:05] VITALS: BP 119/56
[2018-12-11 17:54] VITALS: BP 120/55
[2018-12-11 19:45] VITALS: BP 135/63
[2018-12-12 04:26] VITALS: BP 123/61
[2018-12-12 05:10] LABS: ABSOLUTE NEUTROPHILS 11.8 thou/uL (1.4-8.2); BASOPHILS 0.3 % (0.0-2.0); EOSINOPHILS 0.2 % (0.0-3.0); HEMATOCRIT 26.5 % (42.0-52.0); HEMOGLOBIN 8.7 gm/dL (14.0-18.0); LYMPHOCYTES 9.9 % (24.0-44.0); MCH 29.8 pg (26.0-34.0); MCHC 32.8 g/dL (28.0-37.0); MCV 90.7 fL (80.0-100.0); MONOCYTES 4.5 % (1.0-8.0); POLYS 85.1 % (36.0-66.0); RBC 2.92 mil/uL (4.50-6.00); RDW 14.7 % (10.5-14.5); WBC 13.9 thou/uL (4.0-11.0)
[2018-12-12 05:13] LABS: PLATELET COUNT 260 thou/uL (150-400)
[2018-12-12 05:24] LABS: CREATININE 1.6 mg/dL (0.7-1.3); POTASSIUM 4.3 mmol/L (3.5-5.1)
[2018-12-12 07:50] VITALS: BP 134/61
[2018-12-12 19:45] VITALS: BP 164/64
[2018-12-13 04:52] VITALS: BP 150/63
[2018-12-13 05:52] LABS: ABSOLUTE NEUTROPHILS 9.4 thou/uL (1.4-8.2); BASOPHILS 0.2 % (0.0-2.0); EOSINOPHILS 1.7 % (0.0-3.0); HEMATOCRIT 27.2 % (42.0-52.0); MCHC 33.1 g/dL (28.0-37.0); MCV 90.4 fL (80.0-100.0); MONOCYTES 4.5 % (1.0-8.0); PLATELET COUNT 252 thou/uL (150-400); POLYS 83.6 % (36.0-66.0); RBC 3.01 mil/uL (4.50-6.00); RDW 14.5 % (10.5-14.5); WBC 11.2 thou/uL (4.0-11.0)
[2018-12-13 06:00] LABS: CALCIUM 8.1 mg/dL (8.5-10.1); CREATININE 1.3 mg/dL (0.7-1.3); POTASSIUM 4.5 mmol/L (3.5-5.1)
--- NOTE | 2018-12-13 07:05 | HC ---
[facility] [place] [address] [place] [address] CONSULTATION Name: JOHANN WEBB Room #: 423-1 ADM IN M.R.#: [id number] Admission: 12/06/18 ������������������ Attend Phys: Roby Rivera MD Discharge: ������������������ Date of : 35 Report #: [id number] THIS REPORT FOR: //name// CC: Juliane Oshea MD [facility] Roby Perez MD REASON FOR CONSULTATION: Possible colon cancer. 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 The patient underwent surgery, pathology is pending at this time. Prior to this, other than abdominal pain of several weeks' nature, the patient had done well without any new fevers or chills or new arm or leg swelling, any blood in his urine or stool. His last colonoscopy was probably 20 years ago. 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 He also has bilateral renal cysts. His lab had been fairly normal, though CEA several days ago, but this might have been postop, was about 157, so to take that number with a grain of salt. PAST MEDICAL HISTORY: Notable for chronic renal insufficiency, hyperlipidemia, hypertension, may be some mild cognitive impairment, hypertension, also history of a hernia repair, tonsillectomy, cardiac catheterization, TURP in the past. SOCIAL HISTORY: As mentioned, grew up on a dairy farm in [place]. Then, he moved to [place], they had dairy cattle there. Father also picked potatoes in [place]. 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 No significant alcohol, smoking maybe in the distant past. No street drugs. FAMILY HISTORY: I do not believe there is anyone else with cancer. Two of his 3 children have . One is alive who is also a printer here in town. MEDICATIONS: At this time in the hospital currently include hydromorphone p.r.n., Lovenox 40 mg subcutaneous daily, amlodipine 10 daily, metoprolol 25 daily, MiraLax 17 grams daily, pantoprazole 40 daily, atorvastatin 80 mg at bedtime, docusate 100 mg b.i.d., electrolyte replacement protocol, also p.r.n. antiemetics and other pain medicines. [address] [address] CONSULTATION Name: JOHANN WEBB Room #: 423-1 ADM IN M.R.#: [id number] Admission: 12/06/18 ������������������ Attend Phys: Roby Rivera MD Discharge: ������������������ Date of : 35 Report #: [id number] PHYSICAL EXAMINATION: GENERAL: The patient appears his stated age, is examined and interviewed in a normal hospital room. VITAL SIGNS: Weight is 182.8 pounds or 82.9 kg, height is 5 feet 10 or 177.8 cm. Blood pressure is 123/61, O2 sat 94%, respirations 18, pulse 78, afebrile at 98.6. MOOD: The patient is alert and conversant. NEUROLOGIC: Speech and thought pattern appear to be normal for someone who has just woken up on early Thursday morning. Moving all extremities. ABDOMEN: Does slightly hurt when he laughs a little bit. LYMPHATICS: No enlarged lymph nodes in the supraclavicular, cervical, axillary or inguinal region. EXTREMITIES: Without clubbing or cyanosis. LABORATORY DATA: Shows a BUN of 32, creatinine of 1.6, which is about what he has been, since early this year it has been 1.3-1.4. Liver functions have been normal, AST 6, total bilirubin 0.5, direct bilirubin 0.1, alkaline phosphatase 82, ALT 17, albumin had been 3 about a week ago. Recent white count 13.9, preop was about 8.8, hemoglobin 8.7, preop he was about 10.9 and 12.8, MCV 90.7, RDW 14.7, platelets 260. Differential has an increase in neutrophils recently, no specific abnormalities, there was 1 metamyelocyte and 2 atypical lymphs back in 09/2018. TSH within the last several months is 3.18. Sed rate had been 76. Vitamin B12 was 464 in October. CEA was 157 the morning of 12/07/2018, so that would have been preop, but perhaps after colonoscopy several days. Imaging had included a CAT scan of the abdomen and pelvis back on 10/05/2018. The impression was abnormal dilated loops of small bowel, small pelvic ascites, small right inguinal hernia containing omental fat, indeterminate 10 mm pulmonary nodule, recommended a followup CT chest at that point in future. Note that this was done on 12/07/2018. At that time, they described pulmonary parenchymal change, most likely scarring and atelectasis. They suggested PET scan or followup evaluation to exclude metastatic disease, right liver lobe lesion, most likely a cyst, mild ectasia of the ascending aorta, mildly distended gallbladder. Note that the operative report described that the patient underwent an open ileocecectomy with segmental small bowel resections x 2, who has a cecal mass highly suspicious for cancer with multiple entrapped small bowel loops, path report is pending. ASSESSMENT AND PLAN: 1. Worrisome near cecal lesion for colon cancer. Await final path report. Given elevation of CEA, this also increases this concern. We will wait to see final path report to understand staging and prognosis and whether there is reason to discuss palliative or other chemotherapy or adjuvant chemotherapy. 2. Pulmonary lesion. Will need followup CT or PET scan at some point. 3. Elevated preop CEA. We will need to [place] [address] CONSULTATION Name: JOHANN WEBB ORION Room #: 423-1 ADM IN M.R.#: [id number] Admission: 12/06/18 ������������������ Attend Phys: Roby Rivera MD Discharge: ������������������ Date of : 35 Report #: [id number] 4. Action tremor, no specific medications. 5. Hyperlipidemia, statins. 6. Hypertension. Metoprolol and amlodipine per others. 7. We will follow up with the patient most likely as an outpatient. We will continue rounding on the patient while an inpatient. ��������������������������������������������� <ELECTRONICALLY SIGNED> ���������������������������������������� By: Bc Vick MD ��������������������������������������������� 12/13/18 0705 0751 2040 Bc Vick MD /julienne
[2018-12-13 07:45] VITALS: BP 131/58
[2018-12-13 20:08] VITALS: BP 136/72
[2018-12-14 05:36] LABS: HEMATOCRIT 28.4 % (42.0-52.0); HEMOGLOBIN 9.5 gm/dL (14.0-18.0); MCH 30.4 pg (26.0-34.0); MCHC 33.5 g/dL (28.0-37.0); MCV 90.9 fL (80.0-100.0); RBC 3.12 mil/uL (4.50-6.00); RDW 14.9 % (10.5-14.5); WBC 8.5 thou/uL (4.0-11.0)
[2018-12-14 05:50] LABS: CALCIUM 8.5 mg/dL (8.5-10.1); CREATININE 1.5 mg/dL (0.7-1.3)
[2018-12-14 07:04] VITALS: BP 123/69
[2018-12-14 19:58] VITALS: BP 146/71
[2018-12-15 06:39] LABS: HEMATOCRIT 28.9 % (42.0-52.0); HEMOGLOBIN 9.4 gm/dL (14.0-18.0); MCH 29.7 pg (26.0-34.0); MCHC 32.6 g/dL (28.0-37.0); RBC 3.17 mil/uL (4.50-6.00); WBC 5.6 thou/uL (4.0-11.0)
[2018-12-15 06:51] LABS: CALCIUM 8.8 mg/dL (8.5-10.1); CREATININE 1.5 mg/dL (0.7-1.3)
[2018-12-15 08:00] VITALS: BP 139/70
--- NOTE | 2018-12-15 16:06 | PATH ---
[facility] [place] [address] PATHOLOGY RPT PROCEDURE Name: PAUL TATE Room #: 221-P ADM IN M.R.#: [id number] ������������������ Admission: 12/06/18 ������������������ Date of : 35 Discharge: Report #: [id number] Path Case #: [id number] [facility] Accession Number: [id number] . 01 Material submitted: . PART A: ileum - ILEOCECAL RESECTION W/ PORTION OF ILEUM ATTACHED PART B: ileum - DISTAL ILEUM-SUTURE MANCIA DISTAL. Modifiers: distal PART C: rectum - COLORECTAL ANASTOMOSIS . 01 Clinical history: . Right colon mass . 02 Diagnosis: A. 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 - TUMOR DIRECTLY INVADES THROUGH THE CECUM WALL INTO THE ATTACHED MID ILEUM WALL. - MULTIPLE TUMOR DEPOSITS PRESENT, GREATER THAN 10 ALONG THE SEROSAL SURFACE WELL MESENTERY. 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 - Margins of resection free of malignancy; closest mesenteric margin is 4 mm away and 6.0 cm away from the closest ascending colon margin. . B. Small bowel, distal ileum, resection: - Serosa showing congestion and mild acute inflammation, consistent with serositis. - THREE LYMPH NODES SHOWING METASTATIC ADENOCARCINOMA OF 10 LYMPH NODES (3/10). - Margins of resection free of malignancy. . C. Colorectal anastomosis: - Reactive changes. - Negative for malignancy. . . Surgical Pathology Cancer Case Summary . COLON AND RECTUM Procedure: Ileocecal resection along with portion of mid ileum, and distal ileum resection Tumor Site: Cecum Tumor Size: 8.3 cm x 5.5 cm Macroscopic Tumor Perforation - Not identified Histologic Type - Mucinous adenocarcinoma Histologic Grade - G1, Well differentiated Tumor Extension - Tumor directly invades adjacent structures (through the cecal wall into the attached mid ileum wall) [facility] [address] [place] [address] PATHOLOGY RPT PROCEDURE Name: PAUL TATE Room #: 221-P ADM IN M.R.#: [id number] ������������������ Admission: 12/06/18 ������������������ Date of : 35 Discharge: Report #: [id number] Path Case #: [id number] Margins All margins are uninvolved by invasive carcinoma, high-grade dysplasia, intramucosal adenocarcinoma and adenoma Margins examined - Proximal margin, distal margin, mid ileum bowel margins, and mesenteric margins Distance of invasive carcinoma from closest margin - 4 mm, Specify closest margin - Mesenteric margin Treatment Effect - No known presurgical therapy Lymphovascular Invasion - Indeterminate Perineural Invasion - Not identified Tumor Deposits - Present, multiple greater than 10 in number including serosal as well as mesenteric nodules Regional Lymph Nodes - Number of Lymph Nodes Involved - 7 Number of Lymph Nodes Examined - 23 . Pathologic Stage Classification (pTNM, AJCC 8th Edition) Primary Tumor - pT4b - Tumor directly invades or adheres to adjacent structures or organs Regional Lymph Nodes - pN2b - Seven or more regional lymph nodes are positive Distant Metastasis - pMx Type of polyp in which invasive carcinoma arose - Tubulovillous adenoma LBQ/12/14/2018 . 02 Comment: Immunohistochemical stains are ordered on block A10. MSI immunohistochemical stains (MLH2, MSH2, MSH6 and PMS2) are ordered on block A10 due to the histomorphology and [facility] cancer committee protocol. The results of this will be resulted in an addendum to follow. (IUV/db; 12/14/2018) . 02 Addendum: . MICROSATELLITE INSTABILITY REPORT (MSI): . Per [facility] Cancer Committee Protocol, mismatch repair (MMR) protein immunohistochemical staining was performed. . Reason for testing:To evaluate for evidence of defective mismatch repair proteins. Method:Immunohistochemical staining for the presence or absence of protein expression of one or more of the following MMR protein markers: MLH1, MSH2, MSH6 and PMS2. Tumor type:Invasive adenocarcinoma . Results: MLH1 -Preserved [address] [address] PATHOLOGY RPT PROCEDURE Name: PAUL TATE Room #: 221-P [facility] IN M.R.#: [id number] ������������������ Admission: 12/06/18 ������������������ Date of : 35 Discharge: Report #: [id number] Path Case #: [id number] MSH2 -Preserved MSH6 -Preserved PMS2 -Preserved . Mismatch Repair Status:MMR Proficient (MMR-P) . Interpretation: . (MMR-P) All four MMR proteins are preserved within tumor cells. This suggests the presence of normal DNA mismatch repair function within the tumor and an observable defect in mismatch repair is not identified. The likelihood that this patient has an inherited germline mutation syndrome due to defective mismatch repair is reduced but not totally eliminated. If the patient has a strong personal or family history of HPNCC/Coon syndrome related cancers (colorectal, endometrial, gastric, ovarian, pancreatic, ureter/renal pelvis, biliary tract, brain, small bowel and Arturo-Pasha syndrome), consider MSI testing by PCR methodology. Suggest clinical correlation and follow up. . These test results are designed for screening purposes only and are useful tools in identifying cancer patients that are more likely to have Coon Syndrome related diagnoses. Tests should be interpreted in the context of clinical findings, family history and laboratory data. Abnormal IHC results for MMR protein expression are not considered diagnostic for Coon Syndrome. . (IUV:pit 12/15/2018) . Professional services performed by [email or web address] at [facility], [address] [place] [address] , [place] [address]. Technical services performed by [email or web address] at [address] [place] [address], [address], [place] [address]. [facility]/12/15/2018 Addendum Electronically Signed by Poonam Acosta MD, Pathologist . 02 Electronically signed: . Poonam Acosta MD, Pathologist NPI- [id number] . 01 Gross description: . A. The specimen is received in formalin, labeled "Paul Tate, ileocecal resection with portion of mid ileum attached" and consists of a right hemicolectomy specimen with terminal ileum (5.0 cm in length and 1.5 cm in diameter), ascending colon (16.0 cm in length and ranging from 2.4-5.0 cm in diameter), and pericolic fat measuring up to 7.3 cm. The appendix is absent. There is black tattoo on the cecal pouch serosa. Adherent the cecum is a segment of small bowel (20.0 cm in length and ranging from 2.6-5.6 cm in diameter). All 4 margins are closed with diana. Opening both segments reveals a cecal pink-red, mucinous, and friable mass (8.3 x [facility] [address] [place] [address] PATHOLOGY RPT PROCEDURE Name: PAUL TATE ORION Room #: 221-P ADM IN M.R.#: [id number] ������������������ Admission: 12/06/18 ������������������ Date of : 35 Discharge: Report #: [id number] Path Case #: [id number] 5.5 cm). The mass extends 7.0 cm from the proximal right small bowel margin, greater than 6 cm from the distal ascending colon margin, and greater than 2 cm from both of an oriented small bowel segments. Adherent to both the right colon and small bowel segment are multiple white-holguin nodules. The cecal/ascending colon and small bowel serosa are inked blue and the mesenteric margin black. Sectioning through the mass reveals obliteration of the cecal wall with extension into the attached segment of bowel. The mass grossly approaches the black inked mesenteric margin. No additional masses or lesions are identified. The pericolic tissue reveals multiple lymph node candidates as well as probable tumor deposits measuring between 0.2 cm and 2.0 cm. Auto Body Mechanic Apprentice sections are submitted as follows: . A1: Proximal margin A2: Distal margin A3: Both bowel margins A4-A5: Mass relationship of cecum to small bowel A6-A7: Additional mass obliteration of wall A8: Mass approaching black inked mesenteric margin A9-A10: Auto Body Mechanic Apprentice serosa nodules A11: 1 serially sectioned lymph node candidate A12: 2 bisected lymph node candidate, suspicious A13: Auto Body Mechanic Apprentice section from malignant deposit/node A14: Multiple intact nodules A15: Bisected tumor deposit A16: 2 bisected candidates, one inked black A17: Multiple intact candidates A18: 2 bisected candidates, one inked black A19: Suspicious bisected candidate . B. The specimen is received in formalin, labeled "Paul Tate, distal ileum suture mancia distal" and consists of an oriented segment of small bowel measuring 44.5 cm in length and 2.7 cm in diameter with mesenteric fat measuring 12.0 cm thick. Both margins are stapled closed with a suture designating distal. The serosa is holguin and smooth. Opening reveals a pink-holguin and edematous mucosa with no masses or lesions. Present within the mesenteric fat are multiple lymph node candidate measuring between 0.2 cm and 3.3 cm with two suspicious for malignancy/tumor deposit. Auto Body Mechanic Apprentice sections to include all candidates are submitted as follows: . B1: Distal margin B2: Proximal margin B3-B5: Largest lymph node candidate, serially sectioned B6: One serially sectioned lymph node candidate B7: Suspicious candidate, bisected B8: 3 intact candidates B9: 2 bisected candidates, one inked black [address] [address] PATHOLOGY RPT PROCEDURE Name: PAUL TATE Room #: 221-P [facility] IN M.R.#: [id number] ������������������ Admission: 12/06/18 ������������������ Date of : 35 Discharge: Report #: [id number] Path Case #: [id number] B10: 2 bisected candidates, one inked black . C. The specimen is received in formalin, labeled "Paul Tate, colorectal anastomosis" and consists of a segment of holguin-brown gastrointestinal tissue measuring 4.0 x 2.0 x 0.6 cm. No gross lesions are identified and herbicide service sales representative sections are submitted in C1. (SDY; 12/13/2018) SYU/SYU . 02 Pathologist provided ICD-10: C18.0, C77.2, K65.8, K52.9 . 02 CPT . 923443, 574420, 693208, C85696, [id number] Specimen Comment: A courtesy copy of this report has been sent to Specimen Comment: [phone], . Specimen Comment: Report sent to DR AHMADI / DR WALTON Performed at: [address], [place] [id number] MD Shelton Mccarthy MD Phone: [phone] Performed at: [address] [id number] MD Poonam Acosta MD Phone: [phone]
[2018-12-15 20:32] VITALS: BP 135/74
[2018-12-16 07:45] VITALS: BP 134/78
[2018-12-16 19:55] VITALS: BP 143/65
[2018-12-17 03:35] VITALS: BP 132/60
[2018-12-17 09:18] VITALS: BP 150/65
[2018-12-17 15:55] VITALS: BP 150/65
[2018-12-17 18:01] VITALS: BP 129/54
[2018-12-17 19:35] VITALS: BP 153/72
[2018-12-18 04:40] VITALS: BP 148/86
[2018-12-18 08:42] VITALS: BP 121/56
[2018-12-18 09:35] LABS: HEMATOCRIT 29.9 % (42.0-52.0); HEMOGLOBIN 9.7 gm/dL (14.0-18.0); MCH 29.1 pg (26.0-34.0); MCHC 32.4 g/dL (28.0-37.0); MCV 89.9 fL (80.0-100.0); RBC 3.32 mil/uL (4.50-6.00)
[2018-12-18 09:43] LABS: CALCIUM 8.6 mg/dL (8.5-10.1); CREATININE 1.5 mg/dL (0.7-1.3); MAGNESIUM 1.6 mg/dL (1.8-2.4); POTASSIUM 4.5 mmol/L (3.5-5.1)
[2018-12-18 18:34] VITALS: BP 134/61
[2018-12-19 04:30] VITALS: BP 156/58
[2018-12-19 05:34] LABS: HEMATOCRIT 27.1 % (42.0-52.0); MCH 29.8 pg (26.0-34.0); MCHC 33.3 g/dL (28.0-37.0); MCV 89.6 fL (80.0-100.0); RBC 3.03 mil/uL (4.50-6.00); RDW 14.6 % (10.5-14.5); WBC 5.6 thou/uL (4.0-11.0)
[2018-12-19 05:43] LABS: CALCIUM 8.2 mg/dL (8.5-10.1); CREATININE 1.4 mg/dL (0.7-1.3); MAGNESIUM 1.6 mg/dL (1.8-2.4); POTASSIUM 4.2 mmol/L (3.5-5.1)
[2018-12-19 08:35] VITALS: BP 140/62
[2018-12-19 16:43] VITALS: BP 126/66
[2018-12-19 19:49] VITALS: BP 137/62
[2018-12-20 04:47] VITALS: BP 133/62
[2018-12-20 09:22] VITALS: BP 133/65
[2018-12-20 16:08] VITALS: BP 132/64
[2018-12-20 19:43] VITALS: BP 128/53
[2018-12-21 03:28] VITALS: BP 145/69
[2018-12-21 05:57] LABS: HEMATOCRIT 26.7 % (42.0-52.0); HEMOGLOBIN 8.9 gm/dL (14.0-18.0); MCH 29.5 pg (26.0-34.0); MCHC 33.2 g/dL (28.0-37.0); RDW 14.4 % (10.5-14.5); WBC 9.3 thou/uL (4.0-11.0)
[2018-12-21 06:18] LABS: ALBUMIN 2.1 g/dL (3.4-5.0); CALCIUM 8.1 mg/dL (8.5-10.1); CREATININE 1.4 mg/dL (0.7-1.3); MAGNESIUM 1.9 mg/dL (1.8-2.4); POTASSIUM 4.1 mmol/L (3.5-5.1); TOTAL BILIRUBIN 0.3 mg/dL (<0.1-1.0); TOTAL PROTEIN 6.1 g/dL (6.4-8.2)
[2018-12-21 07:54] VITALS: BP 133/67
--- NOTE | 2018-12-21 12:33 | O ---
[facility] [place] [address] OPERATIVE REPORT Name: JOHANN WEBB Room #: 423-1 ADM IN M.R.#: [id number] Admission: 12/06/18 ������������������ Attend Phys: Roby Rivera MD Discharge: ������������������ Date of : 35 Report #: [id number] THIS REPORT FOR: //name// CC: Juliane Rivera DATE OF SERVICE: 12/10/2018 PREOPERATIVE DIAGNOSIS: Cecal mass. POSTOPERATIVE DIAGNOSES: 1. Cecal mass with erosion into 2 separate segments of small bowel. 2. Intraabdominal implants that appear metastatic in nature. 3. Intraabdominal adhesions. PROCEDURES PERFORMED: 1. Laparoscopic converted to open ileocecectomy with a stapled ileocolic reanastomosis. 2. Open segmental small bowel resections x 2 with stapled udjw-tp-mwdz functional end-to-end reanastomosis. 3. Placement of a topical wound VAC device (Prevena). SURGEON: Olegario Perez MD WELLNESS TRAINER SURGEON: Anton Burgess MD ANESTHESIA: General endotracheal anesthesia. ESTIMATED BLOOD LOSS: Minimal (less than 20 mL). COMPLICATIONS: None appreciated. SPECIMENS: 1. Right colon to pathology. 2. Segments of small bowel to pathology with one still attached to cecum. INDICATIONS: The patient is an 83-year-old male who has not undergone colonoscopy for many decades, who presented with a recurrent small-bowel obstruction, showing evidence of a distal small-bowel obstruction. The patient underwent colonoscopy showing a cecal mass and as such, indication was for the above-mentioned procedure today. DESCRIPTION OF PROCEDURE: After explaining the risks, benefits and alternatives of the procedure with the patient in detail and obtaining consent, the patient was brought to the operating room and placed supine on the operating room table. After conducting a thorough timeout procedure, verifying correct patient and [address] [address] OPERATIVE REPORT Name: JONJOHANN ORION Room #: 423-1 [facility] IN ..#: [id number] Admission: 12/06/18 ������������������ Attend Phys: Roby Rivera MD Discharge: ������������������ Date of : 35 Report #: [id number] procedure, the patient was given general endotracheal anesthesia. Once adequate anesthesia was obtained, his SCDs were hooked up to pneumatic compression device. He was given a preoperative dose of antibiotics in line with the SCIP protocol. The patient's abdomen was prepped and draped in standard surgical sterile fashion. 5 mL of 0.5% Marcaine with epinephrine were used to anesthetize the skin in the supraumbilical location. A #15 bladed scalpel was used to create a 1 cm vertical incision at this location. A 12 mm Visiport was placed over 0 degree 5 mm laparoscope and was introduced through this incision site. Once intra-abdominal placement was verified visually, the obturator for the trocar and laparoscope were both removed and the abdomen was insufflated to 15 mmHg using carbon dioxide gas. The laparoscope was changed to a 5-mm 30-degree laparoscope which was reintroduced through this trocar. The entire abdomen was evaluated to ensure no injury upon entry. I now placed two 5 mm working trocars, one in the suprapubic location, one in the left lower quadrant. Both were placed under direct vision after anesthetizing the skin at each location with 5 mL of 0.5% Marcaine with epinephrine and I had created small skin nicks using #15 bladed scalpel. The patient was now placed in Trendelenburg position with right side elevated and I proceeded to mobilize the right colon. The Harmonic scalpel was used to take down adhesions of the right colon from the abdominal wall. Upon doing so, there was bulky mass effect with numerous loops of small bowel intimately plastered to the ileocecal region. There was marked dilatation of the proximal small bowel secondary to a relative obstruction at this level. As it was quickly identified this was going to be difficult if not impossible to resect laparoscopically, the decision was made to convert to an exploratory laparotomy. A #10 bladed scalpel was used to create a longitudinal midline wound from the supraumbilical location to the suprapubic location, carried to the left of the umbilicus. Electrocautery was used to carry this down through skin and subcutaneous tissues to ensure hemostasis. Once I arrived upon the fascia, a finger was placed within the abdomen and I opened the fascia in a controlled setting, so as to prevent injury from electrocautery burn. I now proceeded to continue mobilization of the right colon. I took down the white line of Toldt with electrocautery. Numerous loops of small bowel, as stated, were plastered to the ileocecal region. One loop was able to be peeled off with a small enterotomy, sutured closed with 3-0 PDS to control any leakage. Windows were made on either side of the mesentery of this segment of small bowel by electrocautery and this was transected using a KRISTIN-75 mm blue load stapler. The EnSeal X1 advanced energy device was used to come across the mesentery for hemostasis. I then created an anastomosis in a peko-nb-masn functional end-to-end fashion and placing a single suture of 3-0 PDS on the antimesenteric aspect to hold the bowel loops in alignment and the antimesenteric corners of the staple lines were removed with curved Dumont scissors. Another firing of the KRISTIN blue load 75 mm stapler was carried out to create the anastomosis. The common enterotomy was elevated between Allis clamps and was closed using a TX blue load 60 stapler. The mesenteric defect was closed using running 3-0 PDS and there was a 3-0 PDS suture placed in the crotch of the anastomosis to act as an anti-tension suture. The TX staple line was [facility] [address] [place] [address] OPERATIVE REPORT Name: JOHANN WEBB ORION Room #: 423-1 ADM IN ..#: [id number] Admission: 12/06/18 ������������������ Attend Phys: Rboy Rivera MD Discharge: ������������������ Date of : 35 Report #: [id number] oversewn using several Lembert sutures of 3-0 PDS in standard fashion. Digital finger palpation of the anastomosis showed it to be widely patent. Now that I had mobilized the entire right colon, I elevated into the bed of the wound and transected the distal ileum as well as the ascending colon with another firing each of the blue load 75 mm stapler after creating windows in the mesentery. The mesentery was then taken down using the X1 device. There was one bleeder from the mesentery that was oversewn using 3-0 PDS in standard fnyllb-vd-ycnbj fashion for complete hemostasis. I now aligned the distal small bowel and the ascending colon in a qltx-iy-qejc functional end-to-end fashion and placed a single suture in the antimesenteric aspect as well. I created an anastomosis in similar fashion and closed it using a TX stapler for the common enterotomy. I oversewed this staple line using several 3-0 PDS sutures in Lembert fashion as well. The final remaining segment of small bowel that had been resected that was attached to the ileocecal specimen was anastomosed in similar fashion, ensuring an anti-tension suture was placed in the crotch of the staple line as well as closing the mesenteric defect. All anastomosis appeared widely patent at this juncture. The abdomen was fully irrigated with 3 liters of water and this was suctioned dry. I then closed the midline fascial wound using looped #1 PDS suture in standard running fashion. Skin was closed with skin diana. I did apply topical Prevena wound VAC to help prevent postoperative wound infections. At the end of the procedure, all instrument, needle and sponge counts were correct. The patient tolerated the procedure without incident, was awakened in the operating room, transitioned to the recovery room in stable condition with no apparent complications. It should be noted the right ureter was conclusively identified, controlled and avoided injury throughout. ��������������������������������������������� <ELECTRONICALLY SIGNED> ���������������������������������������� By: Olegario Perez MD, FACS ��������������������������������������������� 12/21/18 1233 [id number] Olegario Perez MD, FACS /nt
[2018-12-21 15:57] VITALS: BP 120/51
[2018-12-21 19:45] VITALS: BP 129/59
[2018-12-22 04:50] VITALS: BP 122/57
[2018-12-22 09:30] VITALS: BP 124/60
[2018-12-22 11:45] LABS: ABSOLUTE RETIC COUNT 0.0527 10^6/uL; OBSERVED RETIC COUNT 1.73 % (0.6-2.6)
[2018-12-22 11:53] LABS: % SATURATION 6 % (20-39); IRON 11 ug/dL (65-175); TIBC 199 ug/dL (250-450)
[2018-12-22 17:07] VITALS: BP 126/64
[2018-12-22 19:31] VITALS: BP 139/62
[2018-12-23 04:13] VITALS: BP 133/57
[2018-12-23 07:49] VITALS: BP 140/60
[2018-12-23 13:33] LABS: HEMATOCRIT 28.3 % (42.0-52.0); HEMOGLOBIN 9.3 gm/dL (14.0-18.0); MCH 29.4 pg (26.0-34.0); MCHC 32.9 g/dL (28.0-37.0); MCV 89.5 fL (80.0-100.0); PLATELET COUNT 491 thou/uL (150-400); RBC 3.16 mil/uL (4.50-6.00); RDW 14.7 % (10.5-14.5); WBC 10.4 thou/uL (4.0-11.0)
[2018-12-23 13:41] LABS: CALCIUM 8.5 mg/dL (8.5-10.1); CREATININE 1.6 mg/dL (0.7-1.3); POTASSIUM 4.3 mmol/L (3.5-5.1)
[2018-12-23 14:04] LABS: ABSOLUTE NEUTROPHILS 7.6 thou/uL (1.4-8.2)
[2018-12-23 16:03] VITALS: BP 132/62
[2018-12-23 19:55] VITALS: BP 125/52
[2018-12-24 04:43] VITALS: BP 134/64
[2018-12-24 05:57] LABS: HEMOGLOBIN 8.7 gm/dL (14.0-18.0); MCHC 33.7 g/dL (28.0-37.0); MCV 89.1 fL (80.0-100.0); RBC 2.91 mil/uL (4.50-6.00); RDW 14.8 % (10.5-14.5); WBC 10.3 thou/uL (4.0-11.0)
[2018-12-24 06:17] LABS: CALCIUM 8.1 mg/dL (8.5-10.1); CREATININE 1.4 mg/dL (0.7-1.3); POTASSIUM 4.3 mmol/L (3.5-5.1)
[2018-12-24 07:30] VITALS: BP 129/62
--- NOTE | 2018-12-24 10:08 | HC ---
[facility] [place] [address] CONSULTATION Name: JOHANN WEBB Room #: 423-1 ADM IN M.R.#: [id number] Admission: 12/06/18 ������������������ Attend Phys: Roby Rivera MD Discharge: ������������������ Date of : 35 Report #: [id number] THIS REPORT FOR: //name// CC: Juliane Rivera DATE OF SERVICE: 12/23/2018 INFECTIOUS DISEASE CONSULTATION ATTENDING PHYSICIAN: Roby Rivera M.D. REASON FOR CONSULTATION: Abdominal wall cellulitis. 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 The patient has developed some abdominal wall redness. He had been on Augmentin and not improving. I am asked to see the patient. Apparently, consult was requested yesterday; it was not called until today. The patient having his lunch today, feeling fine and voices no major complaints. The patient undergoes extensive exploratory laparotomy for cecal mass; initially laparoscopic, subsequently converted to open ileocecectomy with stapled ileocolic re-anastomosis, open segmental small bowel resections x 2 with diana, srpe-lu-kifz functional, end-to-end re-anastomosis and placement of Prevena, which by now has been removed. 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 PAST MEDICAL HISTORY: History of dyslipidemia, hypertension. Previous small-bowel obstruction and tremors of undetermined etiology. DRUG ALLERGIES: CODEINE AND NIACIN. MEDICATIONS: The patient on treatment with Augmentin 875 mg b.i.d., also receiving treatment with enoxaparin, amlodipine, metoprolol, polyethylene glycol, pantoprazole, docusate, atorvastatin, p.r.n. hydromorphone, p.r.n. naloxone, p.r.n. prochlorperazine, p.r.n., Benadryl, p.r.n. hydroxyzine and p.r.n. metoclopramide, which I will discontinue in view of interaction with Zyvox. SOCIAL HISTORY: See H and P, old records. FAMILY HISTORY: See H and P, old records. REVIEW OF SYSTEMS: See H and P and as above. [address] [address] CONSULTATION Name: JOHANN WEBB ORION Room #: 423-1 [facility] IN [place]umble.#: [id number] Admission: 12/06/18 ������������������ Attend Phys: Roby Rivera MD Discharge: ������������������ Date of : 35 Report #: [id number] PHYSICAL EXAMINATION: GENERAL: A well-developed, qwy-fbjfs-liotzck man, in no distress. VITAL SIGNS: Presenting with following vital signs: Temperature 36.7, pulse 78, respirations 16, BP 140/60 and O2 saturation 94% on room air. HEENMT: Within range. NECK: Supple. No thyromegaly. LUNGS: Clear. HEART: S1, S2. No gallop. ABDOMEN: Diana in place in the laparotomy wound, with erythema to almost the entire length of the wound and some induration, but I suspect induration is from the surgical sutures. The patient has no point tenderness in this area. GENITAL EXAMINATION: Deferred. RECTAL EXAMINATION: Deferred. EXTREMITIES: No edema. LABORATORY DATA: Sodium 138, potassium 4.1, BUN 27, creatinine 1.4, glucose 144, albumin 2.1 g/dL. WBC 9.3, hemoglobin 8.9 and platelets 417,000. No cultures available. ASSESSMENT: 1. Possible abdominal wall cellulitis versus surgical site infection. 2. 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 3. Anemia of chronic disease. 4. Chronic kidney disease. SUGGESTIONS AND RECOMMENDATIONS: Possibly we may consider removing a couple of diana from the abdominal wound and if drainage, culture it. Since the redness persists, we will discontinue Augmentin and start the patient on combination of Levaquin plus metronidazole plus Zyvox. We will obtain MRSA screen as well as CBC and BMP in the morning. Dr. Rivera, thank you for requesting my suggestions. ��������������������������������������������� <ELECTRONICALLY SIGNED> ���������������������������������������� By: Maurilio Mejia MD ��������������������������������������������� 12/24/18 1008 1319 0217 Maurilio Mejia MD /nt
[2018-12-24 15:34] VITALS: BP 135/57
[2018-12-24 21:50] VITALS: BP 115/53
[2018-12-25 04:10] VITALS: BP 138/64
[2018-12-25 04:55] LABS: HEMATOCRIT 26.4 % (42.0-52.0); HEMOGLOBIN 8.7 gm/dL (14.0-18.0); MCH 29.2 pg (26.0-34.0); MCV 88.6 fL (80.0-100.0); RBC 2.98 mil/uL (4.50-6.00); RDW 14.9 % (10.5-14.5); WBC 8.8 thou/uL (4.0-11.0)
[2018-12-25 05:05] LABS: CALCIUM 8.5 mg/dL (8.5-10.1); CREATININE 1.5 mg/dL (0.7-1.3); POTASSIUM 3.9 mmol/L (3.5-5.1)
[2018-12-25 09:20] VITALS: BP 141/69
[2018-12-25 14:41] VITALS: BP 116/57
[2018-12-25 20:15] VITALS: BP 128/54
[2018-12-26 03:40] VITALS: BP 151/61
[2018-12-26 04:56] LABS: HEMATOCRIT 27.4 % (42.0-52.0); HEMOGLOBIN 9.2 gm/dL (14.0-18.0); MCH 29.5 pg (26.0-34.0); MCHC 33.4 g/dL (28.0-37.0); MCV 88.4 fL (80.0-100.0); RBC 3.1 mil/uL (4.50-6.00); RDW 14.8 % (10.5-14.5); WBC 7.7 thou/uL (4.0-11.0)
[2018-12-26 05:09] LABS: CALCIUM 8.7 mg/dL (8.5-10.1); CREATININE 1.5 mg/dL (0.7-1.3)
[2018-12-26 08:41] VITALS: BP 142/69
[2018-12-26 17:48] VITALS: BP 120/54
[2018-12-26 20:06] VITALS: BP 122/69
[2018-12-27 05:16] VITALS: BP 123/47
[2018-12-27 07:18] VITALS: BP 129/66
[2018-12-27] MEDS ORDERED: LEVAQUIN 500 M500 M3 PO (14:04)
[2018-12-27] MEDS ORDERED: HYDROCODONE-AP1 EAC6 PO (14:05)
[2018-12-27] MEDS ORDERED: LORAZEPAM 0.50.5 M1 PO (14:05)
[2018-12-27] MEDS ORDERED: PROTONIX40 M1 PO (14:06)
[2018-12-27] MEDS ORDERED: COLACE 100 MG100 MG PO (14:06)
[2018-12-27] MEDS ORDERED: MINOCIN50 MG PO (14:10)
[2018-12-27 15:23] VITALS: BP 150/65
--- NOTE | 2018-12-27 16:23 | HC ---
[facility] [place] [address] CONSULTATION Name: JOHANN WEBB ORION Room #: 423-1 [facility] IN M.R.#: [id number] Admission: 12/06/18 ������������������ Attend Phys: Roby Rivera MD Discharge: 12/27/18 ������������������ Date of : 35 Report #: [id number] THIS REPORT FOR: //name// CC: Juliane Rivera DATE OF SERVICE: 12/24/2018 CHIEF COMPLAINT: Surgical incision of the abdominal wall. HISTORY OF PRESENT ILLNESS: This is an 83-year-old male patient who was admitted to the hospital earlier this month with a cecal mass. He underwent laparoscopic converted to open ileocecectomy with a stapled ileocolic reanastomosis, open segmental small bowel resection x 2 with stapled sflg-ae-bbah functional end-to-end reanastomosis on 12/10/2018. He was noted to have a cecal mass with erosion into 2 separate segments of small bowel and intra-abdominal implants that appeared to be metastatic in nature as well as intraabdominal adhesions. He has done well postoperatively, but has developed some redness along the incision line. I was asked to evaluate him for the incision and wound and to obtain cultures. The patient denies significant pain associated with this. He is eager to return home. PAST MEDICAL HISTORY: Include elevated cholesterol, hypertension, coronary artery disease, and he is status post left inguinal hernia repair. SOCIAL HISTORY: The patient is a previous smoker, having quit greater than a year ago. No alcohol use. FAMILY HISTORY: Noncontributory. ALLERGIES: INCLUDE CHOCOLATE, CODEINE AND NIACIN. CURRENT MEDICATIONS: Include amlodipine, atorvastatin, diphenhydramine, docusate sodium, enoxaparin, hydralazine, hydrocodone, hydromorphone, Levaquin, linezolid, lorazepam, metoprolol, and metronidazole. REVIEW OF SYSTEMS: CONSTITUTIONAL: The patient denies fever, chills or weight loss. NEUROLOGICAL: The patient denies focal weakness, numbness or tingling. EYES: The patient denies visual changes, redness or drainage. ENT: The patient denies earache, nasal drainage, sore throat. CARDIOVASCULAR: The patient denies chest pain, palpitations or diaphoresis. PULMONARY: The patient denies cough or shortness of breath. GASTROINTESTINAL: The patient denies nausea, but does have some abdominal discomfort, especially around the incision line. GENITOURINARY: The patient denies frequency or urgency [place] [address] CONSULTATION Name: JOHANN WEBB ORION Room #: 423-1 [facility] IN M.R.#: [id number] Admission: 12/06/18 ������������������ Attend Phys: Roby Rivera MD Discharge: 12/27/18 ������������������ Date of : 35 Report #: [id number] dysuria. ORTHOPEDIC: The patient denies pain or swelling of the extremities. Other systems in a 14-point review of systems are negative. PHYSICAL EXAMINATION: VITAL SIGNS: At this time include temperature 98.0, pulse 75, respiratory rate 16, and blood pressure 135/57. GENERAL: This is a fairly well-developed male patient who appears to be in minimal distress. HEENT: Head normocephalic. Nose and throat are clear. NECK: Supple. LUNGS: Clear. HEART: Regular rhythm without murmur. ABDOMEN: Soft. There is a midline surgical incision. There is some redness in several locations along this. Near the umbilicus, there seems to be little bit of fullness and some drainage. I have removed approximately 5 or 6 diana and noted some separation occurs there and there was a release of a seropurulent material. Culture was obtained. There was no undermining from that location along the remainder of the incision line and we have placed a LAY vac to help remove and handle some of the drainage. LABORATORY DATA: Includes sodium 139, potassium 4.3, chloride 106, CO2 of 22, BUN 15, creatinine 1.4, and glucose 127. Last albumin was 2.1. White blood cell count 10.3 with hemoglobin of 8.7. CLINICAL IMPRESSION: 1. Surgical wound to the abdomen with evidence of some mild wound infection. 2. Colonic mass, status post resection, suspicious for cancer. 3. Postoperative ileus that appears to be improving. 4. Acute renal failure, resolved. 5. Hypertension. 6. Hyperlipidemia. RECOMMENDATIONS: At this point in time, we will recommend the LAY vac for starters. If the fat is overwhelmed with fluid, we may just go to a more simple gauze dressing and ABD. I appreciate being asked to see him in consultation. We will follow him clinically here in the hospital. ��������������������������������������������� <ELECTRONICALLY SIGNED> ���������������������������������������� By: Yohannes Ashby MD ��������������������������������������������� 12/27/18 1623 1556 1102 Yohannes Ashby MD /nt
== END 2018-12-27 15:59 | disposition home health service (06) | DRG 329 ==
LOC: ER 11:49 → 4E 14:37 → SICU 14:37 → EROBS 14:37 → 4E 15:44 → SICU 12-13 18:45 → 4E 12-16 14:32
PROVIDERS: Emergency Medicine; Hospitalist; Internal Medicine Infectious Disease; Nurse Practitioner; Nurse Practitioner Family; Surgery; ADMIT Internal Medicine
DX: C18.0 Malignant neoplasm of cecum (principal); N17.0 Acute kidney failure with tubular necrosis; K56.609 Unspecified intestinal obstruction, unspecified as to partial versus complete obstruction; K56.7 Ileus, unspecified; E46 Unspecified protein-calorie malnutrition; L03.311 Cellulitis of abdominal wall; E78.5 Hyperlipidemia, unspecified; N18.9 Chronic kidney disease, unspecified; J98.4 Other disorders of lung; D63.8 Anemia in other chronic diseases classified elsewhere; I25.10 Atherosclerotic heart disease of native coronary artery without angina pectoris; E78.00 Pure hypercholesterolemia, unspecified; K76.89 Other specified diseases of liver; E83.42 Hypomagnesemia; R91.1 Solitary pulmonary nodule; I12.9 Hypertensive chronic kidney disease with stage 1 through stage 4 chronic kidney disease, or unspecified chronic kidney disease; G25.2 Other specified forms of tremor; Z87.891 Personal history of nicotine dependence; Z68.26 Body mass index [BMI] 26.0-26.9, adult; Z98.42 Cataract extraction status, left eye; Z98.41 Cataract extraction status, right eye; Z95.5 Presence of coronary angioplasty implant and graft; Z90.79 Acquired absence of other genital organ(s); Z79.899 Other long term (current) drug therapy; Z88.5 Allergy status to narcotic agent; Z88.8 Allergy status to other drugs, medicaments and biological substances; Z91.018 Allergy to other foods
CPT/HCPCS: 10084; 10783; 15002; 50010; 50101; 50249; 50290; 50386; 50455; 50555; 50558; 50740; 50953; 50962; 51412; 51435; 51489; 51708; 51712; 52265; 53307; 54022; 56462; 56525; 56526; 56527; 56530; 57092; 57103; 62110; 62900; 70005